=== PATIENT | male | born 1955 | race Caucasian/White ===

== ENCOUNTER 2017-03-10 04:42 | Inpatient (IN) | payer BC ==
[~2017-03-10] VITALS: Ht 182.9 cm; Wt 121.4 kg
--- NOTE | ~2017-03-10 | ECH ---
Transthoracic Echocardiography Report (TTE) Demographics Patient Name RENAE CHENG Date of Study 03/10/2017 Patient Number [id number] Visit Number [id number] Date of 1955 Room Number 415 Accession Number [id number] Gender Male Age 61 year(s) Referring Rex Seals Staff Scientist Florence Horton [facility] Physician Ayala Kaplan MD Physician Rena Zamudio MD Functional Director Physician Rex Supervising Ordering Physician King Oleksandr Kaplan MD, MD/P Nurse Stress Health And Safety Representative Conclusions Contractility Score Summary Normal Left Ventricular contractility was noted. Summary Technically fair exam. The estimated left ventricular ejection fraction is 60-65%. Mild left ventricular hypertrophy. Diastolic assessment reveals Grade I diastolic dysfunction. Recommendation The patient will be given the results of this study by the physician who ordered the exam. Procedure Type of Study TTE procedure:Echo Complete SF. Procedure Date Date: 03/10/2017 Start: 11:51 AM Technical Quality: Fair due to body habitus. Indications:Syncope. Appropriate Use Criteria: 9 Height: 72 inches Weight: 266 pounds BSA: 2.4 m Rhythm: Sinus with bundle branch block HR: 97 bpm BP: 148/81 mmHg M-Mode/2D Measurements LV Diastolic Dimension: 4.78 cm LV Systolic Dimension: 3.46 cm LV Septum Diastolic: 1.29 cm LV PW Diastolic: 1.16 cm AO Root Dimension: 3.38 cm Cardiac Output: 7.21 l/min LA Dimension: 3.98 cm Cardiac Index: 3 l/min*m RV Diastolic Dimension: 2.81 cm LA volume index: 22 ml/m LVOT: 2.23 cm LVOT VTI: 19.03 cm RV Base: 3.8 cm LV Stroke volume: 74.29 ml RV Mid: 2.5 cm LV Stroke volume index: 30.95 ml/m RV Length: 7.9 cm Doppler Measurements AV Mean Gradient: 3.06 mmHg MV Peak E-Wave: 0.93 m/s LVOT Peak Velocity: 1.04 m/s MV Peak A-Wave: 1.1 m/s AV Area (Continuity):3.82 cm MV P1/2t: 54.1 msec TR Velocity:1.97 m/s TR Gradient:15.55 mmHg MV Deceleration Time: 178.2 msec Estimated RAP:5 mmHg MV Area (PHT): 4.07 cm Estimated RVSP: 21 mmHg PV Peak Velocity: 1.37 m/s PV Peak Gradient: 7.5 mmHg Estimated PASP: 20.55 mmHg RA Area: 20.69 cm Findings Left Ventricle The left ventricle is normal in size . Mild left ventricular hypertrophy. Diastolic assessment reveals Grade I diastolic dysfunction. Right Ventricle Normal right ventricle structure and function. Left Atrium Normal left atrial size. There is no evidence of patent foramen ovale or atrial septal defect by color Doppler. Right Atrium Normal right atrial size. Mitral Valve Normal mitral valve structure and function. Aortic Valve Normal aortic valve structure and function. Tricuspid Valve Normal appearing tricuspid valve. Trivial tricuspid regurgitation by color Doppler. Pulmonic Valve Normal pulmonic valve structure and function. Pericardial Effusion No evidence of pericardial effusion. Miscellaneous Visualized portions of the aortic root and ascending aorta appear normal in size. Pleural Effusion No evidence of pleural effusion. Contractility Score LV regional wall motion:(0-Non visualized 1-Normal 2-Hypokinesis 3-Akinesis 4-Dyskinesis 5-Aneurysm) Signature
--- NOTE | 2017-03-11 13:24 | ER ---
ADMIT: 03/10/2017 RM/LOC: ER MR#: [id number] [id number] [facility] [address] [place] [phone] RENAE CHENG [address] [place] [address] Emergency Room Report SEX: M AGE: 61 : 1955 DATE: 03/10/2017 TIME: 0442 Please refer to my T-sheet for complete H and P. HISTORY OF PRESENT ILLNESS: Briefly, the patient is a 61-year-old who comes in with syncopal episode. He was not witnessed, but his heard him. He was going to the restroom having a bowel movement, when he passed out and fell forward, hit his face. He is complaining of mid back pain, thoracic region, and facial pain. He apparently was supposed to be heading to get his lower back operated on today. He has been off his Coumadin that he takes for PEs that he has had in the past for 5 days. He is having no chest pain. No shortness of breath. He does not know exactly what happened, started feeling little nauseous and passed out. PHYSICAL EXAMINATION: VITAL SIGNS: Blood pressure is 148/89, pulse 104, respirations 26, temp 97.5, saturating 97%. GENERAL: Mild distress and slightly anxious. HEENT: He has 4 lacerations to his face; #1 is just below the chin and it is about 2 cm; #2 is at forehead of 4 cm;#3 is he has a nasal laceration on the left side that is circumferential, near avulsion of a small piece 3 cm and his fourth one is around the left orbit eye, extends from the lateral canthus in a circumferential area and involves the upper eyelid laterally. Otherwise, he is atraumatic. His pupils are equal, round, and react to light. Extraocular muscles intact. TMs are clear. Nose, no epistasis. Dentition and throat are intact. NECK: Soft, supple. No pain to palpation of cervical spine. LUNGS: Clear to auscultation. No crackles or wheeze. HEART: Regular, no murmur. ABDOMEN: Soft, nontender. No rebound or guarding. BACK: Mid upper thoracic, diffuse pain. PELVIS: No abnormalities. EXTREMITIES: Essentially, no bony prominence or tenderness. NEUROLOGIC: Alert and oriented. Nonfocal. EMERGENCY DEPARTMENT COURSE: EKG revealed sinus rhythm, rate 108. He had a right bundle-branch block. When I compared his prior EKG that was done back in 2010, he had an incomplete right bundle branch block, this is more complete now, so there is some change. Although, it has been around 6 years since that prior EKG. His CBC came back normal except white count 13.4, platelets 132. Chemistries normal except glucose 123. His lipase was normal. Troponin negative. Coags were normal. Did a CT scan of his head. It was no acute findings. CT chest revealed no PE, coronary artery disease as noted and some pulmonary edema. He remained improved while here. We did give him 8 of ADMIT: 03/10/2017 RM/LOC: BRANDIE MR#: [id number] [address] [place] [phone] [facility] [address] [place] [address] Emergency Room Report SEX: M AGE: 61 : 1955 morphine, IV Zofran for his back pain. I had a discussion with Dr. Hodges, will admit to the hospital. ASSESSMENT: 1. Acute syncopal episode. 2. Back pain. 3. Three lacerations on his face, all closed after a saline wash with Dermabond. The chin was 2 cm, forehead was 4 cm, nasal was 3 cm, left eye and canthus was 3 cm. The patient tolerated well. His vital signs improved. He remained stable. I talked to Dr. Hodges, will admit. PLAN: Admit to the hospital. Shyam Cummins MD/ eugene JOB #: [id number] CC: Shyam Cummins MD, Attending Physician Rex Hodges MD, Family Physician
[2017-03-12] MEDS ORDERED: COUMADIN7.5 MG PO (16:51)
[2017-03-12] MEDS ORDERED: ALFUZOSIN HCL E10 MG PO (16:51)
[2017-03-12] MEDS ORDERED: INDOCIN DPS PO (16:52)
[2017-03-12] MEDS ORDERED: COUMADIN10 MG PO (16:53)
--- NOTE | 2017-03-14 08:27 | HP ---
ADMIT: 03/10/2017 RM/LOC: 415 [facility] MR#: [id number] [address] [address] RENAE CHENG Nav [address] [place] [address] History and Physical SEX: M AGE: 61 : 1955 DATE OF SERVICE: CHIEF COMPLAINT: Syncopal event with fall. HISTORY OF PRESENT ILLNESS: The patient is a 61-year-old white male, who presented to the emergency room after a syncopal episode at home. He states that he got up this morning to use the bathroom. While he was sitting on the toilet, he did not feel well. Apparently became very sweaty and then passed out. He fell forward off the toilet seat and hit his face against a vanity. His found him on the floor in the bathroom. He sustained several lacerations to the left side of his face. He does not recall why he passed out. He had previously been feeling okay. Denies fevers, chills, cough, leg pain, chest pain, or palpitations. He came into the emergency room for evaluation. The facial lacerations were treated with Dermabond. Because of his syncopal event and some thoracic back pain, he was kept for further evaluation. His EKG in the emergency room did show some tachycardia with right bundle branch block. Of note is that patient does have a previous history of DVT in his legs and pulmonary embolism dating back to 2007. He has been on anticoagulation since that time but stopped using his Coumadin about 4 days ago in preparation of a lumbar spine epidural injection which was to occur today. ALLERGIES: NO KNOWN MEDICAL ALLERGIES. PAST MEDICAL HISTORY: 1. History of left leg DVT and pulmonary embolism in 2007. 2. Borderline diabetes. 3. Recent lumbar back pain with degenerative disks and right leg radiculopathy. 4. History of prostate enlargement. 5. Obesity. MEDICATIONS: 1. The patient has been taking Coumadin at home until about 4 days ago when he stopped the Coumadin in preparation of his lumbar spine epidural injection which was to occur today. 2. He takes alfuzosin 10 mg daily. He has also taken some indomethacin and hydrocodone sparingly over the past month because of his back pain. PAST SURGICAL HISTORY: The patient has had lithotripsy for right renal calculus in 2008. FAMILY HISTORY: Negative for hypertension, heart disease, cancer, or hypercholesterolemia. SOCIAL HISTORY: The patient is . He has never been a smoker. He works full-time at [employer]. He does not drink alcohol on a regular basis. ADMIT: 03/10/2017 RM/LOC: 415 [facility] MR#: [id number] [address] [place] [phone] [facility] [place] [address] History and Physical SEX: M AGE: 61 : 1955 REVIEW OF SYSTEMS: GENERAL: The patient has been feeling well. Denies any recent dizziness, fatigue, fevers or chills. SKIN: Denies any skin changes, bruising, rashes, or discoloration. HEENT: Denies any recent headache, sore throat, sinus symptoms, blurry vision, or difficulty swallowing. NECK: No stiffness or swollen glands. No thyroid enlargement or tenderness. RESPIRATORY: Denies any shortness of breath, cough, chest pain, wheezes, or prior lung problems. CARDIOVASCULAR: Denies chest pain, irregular heartbeat, swelling of extremities or shortness of breath. No prior history of coronary artery disease. GASTROINTESTINAL: Denies nausea, vomiting, diarrhea, abdominal pain, or constipation. GENITOURINARY: Has a previous history of BPH and is followed by Dr. Anthony of Urology. Denies any dysuria, hematuria, or urinary problems. MUSCULOSKELETAL: Currently complains of some low back pain which has been constant over the past couple of months. Was set to have a lumbar spine epidural injection today because of this. Currently, has some thoracic back pain since his fall and syncopal event this morning. Denies any other unusual muscle aches or pains. NEUROLOGIC: Denies dizziness, seizures, stroke, paresthesias, or focal neurologic symptoms. ENDOCRINE: No history of diabetes or thyroid abnormalities. No appetite changes. HEMATOLOGIC: History of left leg DVT and pulmonary embolism in 2007. Now on chronic Coumadin until the last 4 days. Denies any history of abnormal bleeding or gland problems. PHYSICAL EXAMINATION: VITAL SIGNS: Most recent vitals include a temperature of 99.2, pulse 104 and regular, respiratory rate 16, blood pressure 131/83, O2 saturations 94% on room air. GENERAL: The patient is alert and oriented. He is in moderate distress due to his thoracic back pain and his facial lacerations. HEENT: Ears clear bilaterally. Oropharynx moist without erythema or tonsillar enlargement. He does have some facial lacerations on the left forehead, left lateral eyelid, left side of his nose, and left chin. NECK: Supple without lymphadenopathy or JVD. No thyroid enlargement or tenderness. LUNGS: Clear bilaterally without wheezes, rhonchi, or rales. HEART: Mildly tachycardic but regular and without murmur. ABDOMEN: Obese, soft, nontender, and nondistended. No masses palpated. EXTREMITIES: With functional range of motion and normal strength. He does have moderate tenderness in the mid thoracic region. No masses palpated. NEUROLOGIC: No focal deficits. LABORATORY AND X-RAY DATA: Admission labs included a CBC with mildly elevated white blood cell count of 13.4, hemoglobin 15.9, platelet count 132, INR 1.07. CT of the head done through the emergency room was negative/normal. CTA of ADMIT: 03/10/2017 RM/LOC: 415 [facility] MR#: [id number] [address] [id number] RENAE CHENG [address] [place] [address] History and Physical SEX: M AGE: 61 : 1955 the chest done through the emergency room was negative for pulmonary embolism. Mild diffuse interstitial opacities noted. Sodium 139, potassium 3.8, BUN 24, creatinine 1.2, glucose 123, AST 25, ALT 36, lipase 183, troponin I less than 0.015, proBNP level 22, lactic acid 1.6. Blood cultures drawn but pending. Urine cultures drawn but pending. Lower leg venous Doppler's are negative for DVT of both lower extremities. Carotid ultrasounds are normal bilaterally. Urinalysis showed no evidence of infection. Thoracic spine x-ray was normal without evidence of fractures or lesions. Cervical spine x-ray showed minimal degenerative changes at C6-C7 but no fractures. ASSESSMENT: 1. Syncopal episode. 2. EKG that shows right bundle branch block. 3. Multiple facial lacerations. 4. Thoracic back pain. 5. History of pulmonary embolism (has been off Coumadin for the past 4 days). 6. Questionable sepsis (elevated white blood cell count and elevated heart rate put him along the sepsis pathway). PLAN: We will follow the sepsis pathway at this point and start IV Zosyn. We will follow lab work regularly and give IV fluids. I have asked Cardiology to see this patient due to his syncopal event and EKG changes. We will resume Lovenox for anticoagulation and we will also resume home Coumadin regimen if okay with Cardiology. We will have PT and OT see this patient for treatments and therapy regarding his upper back pain. Rex Hodges MD/ eugene JOB #: [id number] CC: Rex Hodges, Attending Physician Rex Hodges, Family Physician
--- NOTE | 2017-03-17 15:58 | CO ---
ADMIT: 03/10/2017 RM/LOC: 415 [facility] MR#: [id number] [address] [address] RENAE CHENG [address] [place] [address] Consultation SEX: M AGE: 61 : 1955 DATE OF CONSULTATION: 03/10/2017 ATTENDING PHYSICIAN: Rex Hodges CONSULTING PHYSICIAN: Oleksandr Amezcua MD REASON FOR CONSULT: Syncope. Medny Espinal RN, scribing for Dr. Oleksandr Amezcua. HISTORY OF PRESENT ILLNESS: Renae is a very pleasant, 61-year-old gentleman I have been asked to see in Cardiology consultation by Dr. Hodges for syncopal episode. He has no prior history of coronary artery disease. He has no risk factors nor does he have any family history of coronary disease. He reports he had a stress test over 20 years ago that was normal. Other than that, he has not had any cardiac workup. He is a line haul truck driver and denies any changes in his activity tolerance other than about 6 weeks ago, he had back injury which was requiring a procedure today. He does have history of pulmonary emboli on more than one occasion and is on chronic anticoagulation with Coumadin. He had been holding his Coumadin for the last 4 days in anticipation of surgery for his back today. Early this morning, Renae woke up with complaints of generalized illness. He cannot describe exactly what he was feeling other than he just did not feel good. He thought maybe he just needed to have a bowel movement, so he got up and went to the bathroom. He did have a bowel movement and felt fine during that time. Afterwards, he fell extremely weak, he got very diaphoretic and cold, clammy and the next thing he knew, he had lost consciousness. He hit his face on the sink and had some lacerations that were repaired with Dermabond in the ER to his face. He also noted he must have done something to his back when he had fallen, so he has had increased back pain at this time. He denies any chest pain, shortness of breath, palpitations prior to his episode and since then, he has not had any further episodes. He states this has never happened to him before. His heard him fall and stated that by the time she got out of bed and to the bathroom, he was already conscious and alert and oriented and brought him in for his facial injuries. He has not had any significant arrhythmias on monitoring. PAST MEDICAL HISTORY: Degenerative disease in his back, history of kidney stones, PEs x2. PAST SURGICAL HISTORY: Includes right ankle fracture pinning and lithotripsy. ALLERGIES: NO KNOWN MEDICATION ALLERGIES. MEDICATIONS: Current medications include: 1. Zosyn 3.375 g IV q.8 hours. 2. Lovenox 40 mg subcu daily. FAMILY HISTORY: Positive family history of diabetes in mother and brother. Denies family history of heart disease, cancer, or stroke. ADMIT: 03/10/2017 RM/LOC: 415 [facility] MR#: [id number] [address] [place] [phone] RENAE CHENG [address] [place] [address] Consultation SEX: M AGE: 61 : 1955 SOCIAL HISTORY: He is . He lives at home with his . He is a line haul truck driver. He states up until yesterday, he was actually working. He drinks diet Pepsi on a regular basis. About once every 3 months, he will have a glass a wine. He denies any special diet, drug use, or history of tobacco use. REVIEW OF SYSTEMS: GENERAL: Denies fatigue, fever, chills, sweats, rash, or weight loss. EYES: Denies double vision, blurred vision, cataracts, or glaucoma. ENT: Denies hearing loss or problems with nose, mouth or throat. PULMONARY: Denies cough, sputum production, asthma, emphysema or bronchitis. Denies snoring loudly, wakefulness at night, or fatigue upon awakening. GASTROINTESTINAL: Denies heartburn or difficulty swallowing. No change in bowel habits. Denies dark or bloody stools. No history of ulcers, hiatal hernia, or gallbladder or liver disease. GENITOURINARY: Positive history of kidney stones. Denies any hematuria, problems with urination, urinary tract infection, or kidney failure. Denies history of renal insufficiency. MUSCULOSKELETAL: Positive degenerative disk disease and muscle and joint pain in his back. Denies any history of previous arthritis or gout. ENDOCRINE: Denies history of thyroid dysfunction or diabetes. HEMATOLOGIC: Denies history of anemia, easy bruising, or cancer. Pulmonary emboli x2. NEUROLOGIC: Denies chronic headaches, dizziness, syncope, stroke, seizures or numbness or tingling. PSYCHIATRIC: Denies history of mental illness or feelings of depression. PHYSICAL EXAMINATION: VITAL SIGNS: Blood pressure 148/81, heart rate 100, respirations 18, temperature 98.7, oxygenation 94% on O2. GENERAL: Lacerations to face. Otherwise alert and oriented x3. NECK: Right carotid bruit noted. SKIN: [place], warm and dry. EYES: Sclerae clear. No xanthelasmas. ENT: Oral mucosa is pink and moist. No jugular venous distention or carotid bruits. CHEST: Respirations are even and unlabored. Lungs are clear to auscultation. HEART: Regular rate and rhythm. Normal S1, S2. No murmurs, rubs or gallops. ABDOMEN: Soft and nontender. MUSCULOSKELETAL: Gait is normal. EXTREMITIES: Peripheral pulses palpable. No clubbing, cyanosis or edema. PSYCHIATRIC: Alert and oriented. Mood and affect are appropriate. DIAGNOSTIC DATA: CTA of chest on 03/10 was negative for any large or central pulmonary emboli. He had mild interstitial edema versus pneumonitis. Sodium 139, potassium 3.8, BUN 24, creatinine 1.2, glucose 123. Troponin less than 0.015. ProBNP 22, INR 1.07. White blood cell count 13.4, hemoglobin 15.9, hematocrit 47.1, and platelets 132. ADMIT: 03/10/2017 RM/LOC: 415 [facility] MR#: [id number] [id number] [facility] [address] [place] [phone] RENAE CHENG [facility] [place] [address] Consultation SEX: M AGE: 61 : 1955 ASSESSMENT/PLAN: 1. Syncopal episode. 2. Carotid bruit. 3. History of pulmonary embolus. I am most suspicious this episode is due to vasovagal syncope given his symptoms prior to his syncopal episode. I will check echocardiogram to make sure that his structure of heart is normal. I would recommend an outpatient monitor for 7 days on discharge and also check carotids as an outpatient. I will follow him closely. Thank you for the consultation. I have read and agree with the documentation that has been completed regarding this visit. By signing this record, I attest that the documentation was completed in my physical presence and is an accurate record of the encounter. Mendy Epsinal RN / Oleksandr Amezcua MD / eugene JOB #: [id number] CC: Rex Hodges, Attending Physician Rex Hodges, Family Physician Rex Hodges MD
--- NOTE | 2017-04-28 08:03 | DS ---
ADMIT: 03/10/2017 RM/LOC: [facility] MR#: [id number] [address] [id number] RENAE CHENG [address] [place] [address] General Discharge Summary SEX: M AGE: 61 : 1955 ADMISSION DATE: 03/10/2017 DISCHARGE DATE: 03/11/2017 PRIMARY DIAGNOSES: 1. Syncopal event. 2. Right bundle branch block. 3. Facial lacerations treated with Dermabond on 03/10/2017. 4. Thoracic back pain. 5. History of pulmonary embolism (on anticoagulation). CONSULTATIONS: During this hospitalization, Cardiology with Dr. Oleksandr Amezcua. HISTORY OF PRESENT ILLNESS: The patient is a 61-year-old white male, who presented to the emergency room on 03/10/2017 after a syncopal episode at home. He states that he got up in the morning to use the bathroom and while he was sitting on the toilet, did not feel well. He became very sweaty and then passed out. He fell forward off the toilet seat and hit his face against a vanity. His found him on the floor in the bathroom. He had sustained several lacerations to the left side of his face. He does not really recall why he passed out. He had previously been feeling fine. Denied any prior fevers, chills, cough, leg pain, chest pain, or palpitations. The facial lacerations were treated with Dermabond in the emergency room. Because of his syncopal event, he was kept for further evaluation. EKG in the emergency room did show some tachycardia with a right bundle branch block. 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 He has been on anticoagulation since that time, but stopped using his Coumadin about 4 days prior to this hospitalization in preparation of a lumbar spine epidural injection, which was to occur on 03/10/2017. LABORATORY AND X-RAY: Admission labs included a white blood cell count of 13.4, hemoglobin 15.9, platelet count 132. INR 1.07. CT scan of the head done through the emergency room was negative/normal. CTA of the chest was negative for pulmonary embolism. Diffuse interstitial opacities noted in the lungs. Sodium of 139, potassium 3.8, BUN 24, creatinine 1.2, glucose 123, AST 25, ALT 36, lipase 183, troponin I less than 0.015. ProBNP level 22 and lactic acid 1.6. Lower leg venous Dopplers are negative for DVT in both lower extremities. Carotid ultrasounds are normal bilaterally. Urinalysis showed no sign of infection. Thoracic spine x-ray was normal without evidence of fractures or lesions. Cervical spine x-ray showed minimal degenerative changes at C6-C7, but no fractures. An echocardiogram done on 03/10/2017 showed a normal ejection fraction of 60-65%. No valvular abnormalities noted. Urine culture showed no growth. Blood culture showed no growth after 5 days. Prior to discharge sodium level was 139, potassium 3.8, BUN 16, creatinine 1.0, glucose 100. White blood cell count was normal at 6.9, hemoglobin 13.3, and platelet count 130. HOSPITAL COURSE: The patient was admitted on 03/10/2017 after having a syncopal event and fall at home. His syncopal episode was evaluated thoroughly. Because he was on Coumadin, he also had significant evaluation in ADMIT: 03/10/2017 RM/LOC: [address] [facility] MR#: [id number] [address] [place] [id number] RENAE CHENG [address] [place] [address] General Discharge Summary SEX: M AGE: 61 : 1955 the emergency room to rule out blood clots. CT scan of his head was negative. CTA of the chest did not show pulmonary embolism or pneumonia. Venous Dopplers of the lower extremities did not show any blood clots. Cardiology did evaluate this patient because of the syncopal event. Carotid Dopplers were negative and an echocardiogram was unremarkable. It was suspected that the patient may have had a vasovagal episode while on the toilet. He fell and hit his face. The lacerations were treated with Dermabond in the emergency room. The patient did not have any further dizzy spells or syncopal events while in the hospital. His cardiac workup was essentially normal. After extensive testing, we did not find any reason for his syncopal event. He did receive some physical therapy while in the hospital for his thoracic back pain. By 03/11/2017, the patient was doing well. His back pain was much improved. Lacerations were stable. He had no further dizziness or syncope while in the hospital. He was therefore set up to be discharged to home back on all of his home medications. DISCHARGE INSTRUCTIONS: The patient was discharged to home in very stable condition on 03/11/2017. MEDICATION AT TIME OF DISCHARGE: 1. Coumadin 10 mg on Wednesday, Wednesday, Wednesday. 2. Coumadin 7.5 mg on Wednesday, Wednesday, , Wednesday. 3. Uroxatral 10 mg daily. 4. Indomethacin 50 mg 3 times daily as needed for pain and inflammation. He is to follow up with Cardiology to arrange for a seven day library monitor as an outpatient. Remain on a regular diet. Check INR at the [facility] on 03/15/2017. Follow up with Dr. Hodges in the office in 7-10 days for recheck. Rex Hodges MD/ [place] JOB #: [id number] CC: Rex Hodges MD, Attending Physician Rex Hodges MD, Family Physician
== END 2017-03-11 10:44 | disposition home or self-care (01) | DRG 312 ==
LOC: ER 04:42 → 4PCU 06:24
PROVIDERS: ADMIT Family Medicine
DX: R55 Syncope and collapse (principal); S01.112A Laceration without foreign body of left eyelid and periocular area, initial encounter; S01.21XA Laceration without foreign body of nose, initial encounter; E66.9 Obesity, unspecified; S01.81XA Laceration without foreign body of other part of head, initial encounter; I45.10 Unspecified right bundle-branch block; M54.6 Pain in thoracic spine; W18.12XA Fall from or off toilet with subsequent striking against object, initial encounter; R09.89 Other specified symptoms and signs involving the circulatory and respiratory systems; R73.03 Prediabetes; M51.16 Intervertebral disc disorders with radiculopathy, lumbar region; N40.0 Benign prostatic hyperplasia without lower urinary tract symptoms; Z86.711 Personal history of pulmonary embolism; Z86.718 Personal history of other venous thrombosis and embolism; Z68.36 Body mass index [BMI] 36.0-36.9, adult